=== PATIENT | female | born 1980 | race Caucasian/White ===

== ENCOUNTER 2017-08-08 16:42 | Emergency (ER) | payer OTHER ==
[~2017-08-08] VITALS: Ht 152.4 cm; Wt 94.5 kg
[~2017-08-08 16:42] MED LIST: NOCURR
[2017-08-08] MEDS ORDERED: ALBU8HFA4 IH (16:51)
[2017-08-08] MEDS: LIDOCAINE HCL 2% VISCOUS 15 ML SOLUTION UDCUP PO ONE ×2 (19:56→20:07)
[2017-08-08 23:34] VITALS: BP 119/72
== END 2017-08-08 23:39 | disposition home or self-care (01) ==
LOC: EMS 16:44
DX: R09.89 Other specified symptoms and signs involving the circulatory and respiratory systems (principal); J45.909 Unspecified asthma, uncomplicated; Z91.041 Radiographic dye allergy status
CPT/HCPCS: 70360; 99284

== ENCOUNTER → 2022-09-30 | Outpatient (CLI) | payer OTHER ==
[~2022-09-30] MED LIST changes: +ALBU8HFA4 IH
[2022-10-01 09:07] LABS: RUBELLA AB IGG-REFLAB 4.62 index (Immune >0.99)
== END | disposition home or self-care (01) ==
LOC: LABMN 14:02
PROVIDERS: ATTEND Internal Medicine
DX: Z02.1 Encounter for pre-employment examination (principal)
CPT/HCPCS: 86706; 86735; 86762; 86765; 86787